=== PATIENT | female | born 2000 | race Caucasian/White ===

== ENCOUNTER 2022-11-04 07:26 | Outpatient (OUT) | payer BC, SELFPAY ==
[2022-11-04 08:31] LABS: Alanine Aminotransferase 27 U/L (14-59); Albumin Globulin Ratio 0.8; Albumin Level 3.5 g/dL (3.4-5.0); Alkaline Phosphatase 124 U/L (46-116); Aspartate Amino Transferase 16 U/L (15-37); Bilirubin Direct 0.1 mg/dL (0.0-0.2); Bilirubin Total 0.5 mg/dL (0.2-1.0); Free T3 1.59 pg/mL (2.18-3.98); Globulin 4.4 g/dL; Thyroid Stimulating Hormone 0.438 uIU/mL (0.358-3.740); Total Protein 7.9 g/dL (6.4-8.2)
[2022-11-04 08:57] LABS: Free T4 0.72 ng/dL (0.76-1.46)
== END 2022-11-04 07:27 | disposition home or self-care (01) ==
LOC: LAB 07:27
PROVIDERS: PCP Family Medicine; Visit Provider Internal Medicine
DX: E05.90 Thyrotoxicosis, unspecified without thyrotoxic crisis or storm (principal); E05.00 Thyrotoxicosis with diffuse goiter without thyrotoxic crisis or storm
CPT/HCPCS: 36415; 80076; 84439; 84443; 84481

== ENCOUNTER 2023-07-17 07:24 | Outpatient (OUT) | payer BC, SELFPAY ==
[2023-07-17 08:24] LABS: Alanine Aminotransferase 20 U/L (14-59); Albumin Globulin Ratio 0.8; Albumin Level 3.3 g/dL (3.4-5.0); Alkaline Phosphatase 108 U/L (46-116); Aspartate Amino Transferase 15 U/L (15-37); Bilirubin Direct 0.1 mg/dL (0.0-0.2); Bilirubin Total 0.4 mg/dL (0.2-1.0); Free T3 2.86 pg/mL (2.18-3.98); Globulin 4.3 g/dL; Thyroid Stimulating Hormone 0.364 uIU/mL (0.358-3.740); Total Protein 7.6 g/dL (6.4-8.2)
== END 2023-07-17 07:25 | disposition home or self-care (01) ==
LOC: LAB 07:24
PROVIDERS: PCP Family Medicine; Visit Provider Internal Medicine
DX: E05.00 Thyrotoxicosis with diffuse goiter without thyrotoxic crisis or storm (principal); E05.90 Thyrotoxicosis, unspecified without thyrotoxic crisis or storm
CPT/HCPCS: 36415; 80076; 84439; 84443; 84481

== ENCOUNTER 2025-03-24 09:00 | Outpatient (OUT) | payer BC, SELFPAY ==
--- OUTSIDE RECORDS SUMMARY | 2023-10-01 05:20 | XMS_ITS ---
Author Organization [facility] in [place] Address [address] [place] [address] Care Team Providers Care Laborer Carpentry Dock Name Role Phone Cecy Pereira MD Primary Care Provider Unavailab Terrie Mc Unavailable [phone] REASON FOR VISIT 5 week f/u Encounters Encounter Location Date Provider Diagnosis [facility] (PODIATRY) [address] [place] [address] [place] [address] 10/01/2023 Terrie Baldwin Plan Of Treatment No Information Progress Notes * Zara YUENElianaOB: 001 (24 yo F)Acc No.[id number]:10/01/2023 UNLOCKED PROGRESS NOTE Follow Up Patient: Laura GARCIA :?SHAGGY TompkinsCDOB:2000???Age:23 Y ???Sex:FemaleDate:4Phone:[phone]:[address], [place], [id number]:Cecy Pereira MD Subjective: * Chief Complaints: * 1 . 5 week f/u. * Medical History: Objective: * Vitals: Assessment: Plan: * Treatment: * * Electronic signature of Terrie Baldwin PA-C on 03/24/2025 at 09:02 AM ESTSign off status: PendingVisit Status:?CANC (Cancelled) * Provider: Keyshawn Baldwin PA-C Date: 0 10/01/2023 Generated for Printing/Faxing/eTransmitting on:?03/24/2025 09:02 AM EST
--- OUTSIDE RECORDS SUMMARY | 2025-03-22 10:00 | XMS_ITS | Encounter Summary ---
Author Organization [facility] Address [address] [place] [address] Care Team Providers Care Soda Dispenser Name Role Phone Unavailable Primary Care Provider Unavailabl e Reason for Visit * ReasonCommentsRuptured ovarian cyst Encounter Details DateTypeDepartmentCare Team (Latest Contact Info)Pzoimsnypmd97/17/2025 10:00 AM ESTOffice Visit [facility] [address] [place] [address] Sanjana Galaviz, BETZY [address] [address] Amenorrhea (Primary Dx); Ruptured cyst of ovary Social History Tobacco UseTypesPacks/DayYears UsedDateSmoking Tobacco: Never Assessed CommentsUnknownSex and Gender InformationValueDate RecordedSex Assigned at Not on fileLegal OeaWukkxy68/15/2023 7:09 PM EDTGender IdentityNot on fileSexual OrientationNot on filedocumented as of this encounter Last Filed Vital Signs Vital SignReadingTime TakenCommentsBlood Ulavzhot846/7803/22/2025 10:12 AM EST Pulse--Temperature--Respiratory Rate--Oxygen Saturation--Inhaled Oxygen Concentration--Yvwkpf517 kg (252 lb 1.9 oz)03/22/2025 10:12 AM ESTHeight--Body Mass Index44.6608 3:27 PM EDTdocumented in this encounter Progress Notes * NILS Duvall - 03/22/2025 10:00 AM EST Reason for Appointment: Patient ID: Laura Cavazos is a 24 y.o. female who presents for Ruptured ovarian cyst Patient presents today for Acute Visit. 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, unspecified without thyrotoxic crisis or storm HISTORY PAST MEDICAL HISTORY SOCIAL HISTORY Past Medical History: Diagnosis Date Abnormal weight loss Anxiety Depression Hirsutism 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 HENT: Negative. Eyes: Negative. Respiratory: Negative. Cardiovascular: Negative. Gastrointestinal: Negative. Genitourinary: Negative. Musculoskeletal: Negative. Skin: Negative. Neurological: Negative. All other systems reviewed and are negative. Hematological: Negative. Endocrine: Negative. Allergic/Immunologic: Negative. OBJECTIVE Objective: Physical Exam Constitutional: Appearance: Normal appearance. She is normal weight. HENT: Head: Normocephalic. Cardiovascular: Rate and Rhythm: Normal rate. Pulses: Normal pulses. Pulmonary: Effort: Pulmonary effort is normal. Breath sounds: Normal breath sounds. Abdominal: Palpations: Abdomen is soft. Musculoskeletal: General: Normal range of motion. Neurological: General: No focal deficit present. Mental Status: She is alert and oriented to person, place, and time. Psychiatric: Mood and Affect: Mood normal. Behavior: Behavior normal. Thought Content: Thought content normal. Judgment: Judgment normal. Vitals and nursing note reviewed. Vitals: Estimated body mass index is 44.66 kg/m?? as calculated from the following: Height as of 11/13/22: 5' 3 . Weight as of this encounter: 252 lb 1.9 oz. BP: 122/78 Patient's last menstrual period was 03/11/2025. Assessment/Plan ICD-10-CM 1. Amenorrhea N91.2 TSH CBC and differential Prolactin hCG, quantitative, Hemoglobin A1c US Pelvis w/ TV 2. Ruptured cyst of ovary N83.209 POCT urinalysis dipstick manually resulted Assessment/Plan Patient presents for pelvic pain, states she had increased pain yesterday evening and then stopped around 3 am this morning. Pt uncertain if she's had cyst in past but mom had history of cyst in past. She denies any bleeding or discharge. Pt states last period ended on 03/19/25. We will order labs and US. Pt will schedule for annual and results Documented by NILS Duvall on behalf of: Sanjana Galaviz NP documented in this encounter Plan of Treatment DateTypeDepartmentCare Team (Latest Contact Info)Lrdlpjssdvi73/07/2026 1:00 PM ESTAncillary Procedure [facility] [address] [place] [id number] 04/26/2025 10:00 AM ESTProcedure Visit [facility] [address] [facility] [place] [phone] Sanjana Galaviz NP [address] [address] NameTypePriorityAssociated DiagnosesOrder ScheduleTSHLabRoutine Amenorrhea Ordered: 03/22/2025BC and differentialLabRoutine Amenorrhea Ordered: 03/22/2025ProlactinLabRoutine Amenorrhea Ordered: 03/22/2025hCG, quantitative, pregnancyLabRoutine Amenorrhea Ordered: 03/22/2025Hemoglobin N4sNkkWwhhyeq Amenorrhea Ordered: 03/22/2025US Pelvis w/ TVImagingRoutine Amenorrhea Expected: 03/22/2025, Expires: 03/22/2026documented as of this encounter Procedures Procedure NamePriorityDate/TimeAssociated DiagnosisCommentsPOCT URINALYSIS QPEFLQRFJajepge89/17/2025 10:22 AM EST Ruptured cyst of ovary documented in this encounter Results * (ABNORMAL) POCT urinalysis dipstick manually resulted (03/22/2025 10:22 AM EST)ComponentValueRef RangeTest MethodAnalysis TimePerformed AtPathologist SignatureColor, UAYellowClarity, UAClearGlucose, UANegativeNegative - 2000(110) ++++ mg/dLBilirubin, UANegativeNegative - 4(70) +++ mg/dLKetones, UA NegativeNegative - 160(16) ++++ mg/dLSpec Grav, UA1.0201 - 1.03Blood, UA PositiveNegative - 50 Wilver/mcLpH, UA5.55 - 9Protein, UAPositiveNegative - 2000(20) ++++ mg/dLUrobilinogen, UA1.00.2 - 12 mg/dLLeukocytes, UANegative Negative - 500+++ Jaclyn/mcLNitrite, UANegativeNegative - PositiveSpecimen (Source)Anatomical Location / LateralityCollection Method / VolumeCollection TimeReceived QxfvWvuqf52/17/2025 10:22 AM EST Narrative Authorizing ProviderResult TypeResult StatusSanjana Galaviz NPPOINT OF CARE TEST ENTER/EDIT ORDERABLESFinal Result documented in this encounter Visit Diagnoses Diagnosis Amenorrhea- Primary Absence of menstruation Ruptured cyst of ovary documented in this encounter
--- OUTSIDE RECORDS SUMMARY | 2025-03-24 09:03 | XMS_ITS | Clinical Summary ---
Author Organization [facility] Address [address] [place] [address] Care Team Providers Care Icebox Worker Name Role Phone Unavailable Primary Care Provider Unavailabl e Allergies No known active allergies Medications MedicationSigDispense QuantityRefillsLast FilledStart DateEnd DateStatus etonogestrel-eluting (Nexplanon) 68 mg contraceptive implant 1 each by Implant route 1 (one) time05/09/2022ctive fludrocortisone (Florinef) 0.1 MG tablet Take 0.1 mg/day by mouth Daily03/22/2025Discontinued(Other) metoprolol succinate XL (Toprol-XL) 25 MG 24 hr tablet Take 25 mg by mouth Daily Do not crush or chew.03/22/2025Discontinued(Other) sertraline (Zoloft) 25 MG tablet Take 25 mg by mouth Daily03/22/2025Discontinued(Other) SUMAtriptan (Imitrex) 50 MG tablet Take 50 mg by mouth 2 (two) times a day as needed for migraine May repeat dose once in 2 hours if no relief. Do not exceed 2 doses in 24 hours.03/22/2025 Discontinued(Other) tiZANidine (Zanaflex) 4 MG tablet Take 4 mg by mouth 3 (three) times a day as needed for muscle ugibeg4005/23/2024 Discontinued(Other) Encounters DateTypeDepartmentCare FdlfVcakzudgrcn53/17/2025 10:00 AM ESTOffice Visit [facility] [address] [place] [address] [place] [address] Sanjana Galaviz NP Amenorrhea (Primary Dx); Ruptured cyst of ovary5Bamboo flowsheet [facility] [address] [place] [address] Sanjana Galaviz NP from Last 3 Months Family History Medical HistoryRelationNameCommentsDiabetesFatherAnxiety disorderMother HyperlipidemiaMotherHypertensionMotherDepressionSisterHypertensionSisterRelation NameStatusCommentsFatherAliveMotherAliveSisterAlive Social History Tobacco UseTypesPacks/DayYears UsedDateSmoking Tobacco: Never Assessed CommentsUnknownSex and Gender InformationValueDate RecordedSex Assigned at Not on fileLegal GsmAwibmr00/15/2023 7:09 PM EDTGender IdentityNot on fileSexual OrientationNot on file Last Filed Vital Signs Vital SignReadingTime TakenCommentsBlood Pvhzimih698/7803/22/2025 10:12 AM EST Cyyfv984711/13/2022 3:27 PM EDTTemperature--Respiratory Aacd229511/13/2022 3:27 PM EDTOxygen Wbedjqntkd70%11/13/2022 3:27 PM EDTInhaled Oxygen Concentration-- Xkyzmq632 kg (252 lb 1.9 oz)03/22/2025 10:12 AM TJYSpkmta854 cm (5' 3 ) 11/13/2022 3:27 PM EDTBody Mass Index44.6608 3:27 PM EDT Plan of Treatment DateTypeDepartmentCare Team (Latest Contact Info)Vxjyfxzjiqg73/07/2026 1:00 PM ESTAncillary Procedure [facility] [address] [place] [address] 04/26/2025 10:00 AM ESTProcedure Visit [facility] [address] [place] [address] Sanjana Galaviz, BETZY [address] [place] [address] Procedures Procedure NamePriorityDate/TimeAssociated DiagnosisCommentsPOCT URINALYSIS EQOCJDLPKcmgyvj31/17/2025 10:22 AM EST Ruptured cyst of ovary from Last 3 Months Results * (ABNORMAL) POCT urinalysis dipstick manually resulted (03/22/2025 10:22 AM EST)ComponentValueRef RangeTest MethodAnalysis TimePerformed AtPathologist SignatureColor, UAYellowClarity, UAClearGlucose, UANegativeNegative - 1999(110) ++++ mg/dLBilirubin, UANegativeNegative - 4(70) +++ mg/dLKetones, UA NegativeNegative - 160(16) ++++ mg/dLSpec Grav, UA1.0201 - 1.03Blood, UA PositiveNegative - 50 Wilver/mcLpH, UA5.55 - 9Protein, UAPositiveNegative - 2000(20) ++++ mg/dLUrobilinogen, UA1.00.2 - 12 mg/dLLeukocytes, UANegative Negative - 500+++ Jaclyn/mcLNitrite, UANegativeNegative - PositiveSpecimen (Source)Anatomical Location / LateralityCollection Method / VolumeCollection TimeReceived TfvkOjixs62/17/2025 10:22 AM EST Narrative Authorizing ProviderResult TypeResult StatusSanjana Galaviz NPPOINT OF CARE TEST ENTER/EDIT ORDERABLESFinal Result from Last 3 Months Insurance
--- OUTSIDE RECORDS SUMMARY | 2025-03-24 09:03 | XMS_ITS | Patient Health Record ---
Author Organization [facility] in [place] Address [address] [place] [address] Care Team Providers Care Machinery Repair Maintenance Supervisor Name Role Phone Cecy Pereira MD Primary Care Provider Unavailab le Allergies No Known Allergies Reason For Referral No Information Medications Medication SIG (Take, Route, Frequency, Duration) Notes Start Date End Date Status tiZANidine HCl 4 MG 1 tablet at bedtime as neede d Orally Once a day ActiveIbuprofen 800 MGOral; Duration: 30 DaysActiveFludrocortisone Acetate 0.1 MGOral; Duration: 90 DaysActiveMetoprolol Succinate ER 25 MGTAKE 1 TABLET BY MOUTH EVERY DAY Oral; Duration: 90 DaysActiveDicyclomine HCl 10 MGTAKE 1 CAPSULE 3 TIMES A DAY NEEDED FOR ABDOMINAL DISCOMFORT, DRINK PLENTY OF FLUIDS Oral; Duration: 7 DaysActive Social History Tobacco Use: Social History Observation Description Date Details (start date - stop date) Current Smoker NA - NA Tobacco Control (Standard) Question Answer Notes Tobacco use: Current smoker Plan Of Treatment No Information Insurance Providers Payer Name Payer Address Payer Phone Subscriber Number Group Number Insured Name Patient Relationship to Insured Coverage Start Date Coverage End Date BCBS OUT OF STATE [address] [place] [phone] [id number] Ortiz Child - Insured has Financial Responsibility Medical (General) History Surgical History Surgery Date(Month/Year) cholecystectomy
--- OUTSIDE RECORDS SUMMARY | 2025-03-24 09:03 | XMS_ITS | Encounter Summary ---
Author Organization [facility] Address [address] [place] [address] Care Team Providers Care Furniture Finisher Helper Name Role Phone Unavailable Primary Care Provider Unavailabl e Encounter Details DateTypeDepartmentCare Team (Latest Contact Info)Ewqmokglkln95/17/2025Bamboo flowsheet [facility] [address] [place] [address] [place] [address] Sanjana Galaviz, DROP HAMMER SETTER UP [address] [place] [address] [place] [address] Social History Tobacco UseTypesPacks/DayYears UsedDateSmoking Tobacco: Never Assessed CommentsUnknownSex and Gender InformationValueDate RecordedSex Assigned at Not on fileLegal XvuRunnjc10/15/2023 7:09 PM EDTGender IdentityNot on fileSexual OrientationNot on filedocumented as of this encounter Plan of Treatment DateTypeDepartmentCare Team (Latest Contact Info)Wyypqdqggmf73/07/2026 1:00 PM ESTAncillary Procedure [facility] [address] [place] [address] 04/26/2025 10:00 AM ESTProcedure Visit [facility] [place] [address] Sanjana Galaviz, DROP HAMMER SETTER UP [address] [place] [address] documented as of this encounter Visit Diagnoses Not on filedocumented in this encounter
--- OUTSIDE RECORDS SUMMARY | 2025-03-24 09:03 | XMS_ITS | Clinical Summary ---
Author Organization [employer] [facility] Address [id number] [address] [place] [address] Care Team Providers Care Investigative Shopper Name Role Phone Cecy Pereira MD Primary Care Provider [phone] Allergies No known active allergies Medications MedicationSigDispense QuantityRefillsLast FilledStart DateEnd DateStatus adapalene-benzoyl peroxide 0.1-2.5 % gel Apply topically nightly.Active Active Problems ProblemNoted DateDiagnosed DateWears glassesMorbid obesity Family History Medical HistoryRelationNameCommentsDepressionMaternal GrandmotherBlood Clots MotherClotting disorderMotherDeep vein thrombosisMotherAlcohol abusePaternal GrandfatherAneurysmPaternal GrandfatherbrainHeart diseasePaternal Grandfather RelationNameStatusCommentsMaternal GrandmotherMotherPaternal Grandfather Social History Tobacco UseTypesPacks/DayYears UsedDateSmoking Tobacco: Passive Smoke Exposure - Never Smoker Tobacco Cessation:Counseling Given: Yes Alcohol UseStandard Drinks/WeekCommentsNo0 (1 standard drink = 0.6 oz pure alcohol)ChildcareAnswerDate FjhtgknyVgijubzclMjlinnb61/06/2019EmploymentAnswer Date RdpufhvlJqmoncpvnnEvzlthj62/06/2019Purpose - LifeAnswerDate RecordedPurpose and direction in fyguYrpjlnv68/11/2021CommentsUnknownSex and Gender InformationValueDate RecordedSex Assigned at BirthNot on fileLegal SexFemale 03/25/2016 3:51 PM ESTGender IdentityNot on fileSexual OrientationNot on file OccupationIndustryJob Start DateJob End DateNOT EMPLOYED studentNot on fileNot on fileNot on fileelectricianNot on fileNot on fileNot on file Last Filed Vital Signs Vital SignReadingTime TakenCommentsBlood Lbeejedi217/8702 1:23 PM EST Jtgab719805/19/2016 1:23 PM ESTTemperature--Respiratory Rate--Oxygen Saturation-- Inhaled Oxygen Concentration--Nwoqpd781 kg (251 lb 5.2 oz)05/19/2016 1:23 PM EST Wtbwqc604.2 cm (5' 5.04 )05/19/2016 1:23 PM ESTBody Mass Index41.77005/19/2016 1:23 PM EST Plan of Treatment Health MaintenanceDue DateLast DoneCommentsDepression Xgmtxgcfn64/08/2013Tobacco Qiaochwoq16/08/2013dult BMI Tpoluqvxt60/08/2019DTaP,Tdap and Td Vaccines (1 - Tdap)08/12/2019Pap Smear2021Influenza Xwnefgc0512/05/2024 Medical Devices Not on file Insurance Care Teams Team MemberRelationshipSpecialtyStart DateEnd Cecy Pereira MD [facility] [place] [address] PCP - [facility]05/19/16
[2025-03-24 10:10] LABS: Free T3 2.71 pg/mL (2.18-3.98); Thyroid Stimulating Hormone 0.723 uIU/mL (0.358-3.740)
== END 2025-03-24 09:01 | disposition home or self-care (01) ==
LOC: LAB 09:01
PROVIDERS: PCP Family Medicine; Visit Provider Family Medicine
DX: E05.90 Thyrotoxicosis, unspecified without thyrotoxic crisis or storm (principal)
CPT/HCPCS: 36415; 84439; 84443; 84481